=== PATIENT | female | born 1995 | race African-American/Black ===

== ENCOUNTER 2021-11-27 08:00 | Outpatient (CLI) | payer OTHER | END 2021-11-27 09:20 | disposition home or self-care (01) | LOC: PRENATAL 08:00 | PROVIDERS: ATTEND Obstetrics & Gynecology Maternal & Fetal Medicine | DX: O35.0XX0 Maternal care for (suspected) central nervous system malformation in fetus, not applicable or unspecified (principal); O35.3XX0 Maternal care for (suspected) damage to fetus from viral disease in mother, not applicable or unspecified; Z3A.23 23 weeks gestation of pregnancy ==

== ENCOUNTER 2022-03-25 11:44 | Inpatient (IN) | payer OTHER ==
[~2022-03-25] VITALS: Ht 162.6 cm; Wt 3.6 kg
[2022-03-27] MEDS ORDERED: PRENATAL TABLE1 EAC1 PO (05:43)
== END 2022-03-29 14:39 | disposition home or self-care (01) | DRG 788 ==
LOC: OB/GYN 11:44 → LDR 03-27 05:14 → OB/GYN 03-27 05:14 → LDR 03-27 05:49 → OB/GYN 03-27 17:26
PROVIDERS: ADMIT Specialist; ATTEND Specialist
PROC: 4A1HXCZ Monitoring of Products of Conception, Cardiac Rate, External Approach (ICD-10-PCS; 2022-03-27)
PROC: 10D00Z1 Extraction of Products of Conception, Low, Open Approach (ICD-10-PCS; principal; 2022-03-27 22:30)
DX: O33.5XX0 Maternal care for disproportion due to unusually large fetus, not applicable or unspecified (principal); O36.63X0 Maternal care for excessive fetal growth, third trimester, not applicable or unspecified; O62.0 Primary inadequate contractions; Z3A.40 40 weeks gestation of pregnancy; Z37.0 Single live birth; Z20.822 Contact with and (suspected) exposure to COVID-19